=== PATIENT | female | born 1985 | race Caucasian/White ===

== ENCOUNTER 2022-10-19 13:59 | Inpatient (IN) | payer OTHER ==
[~2022-10-19] VITALS: Ht 165.1 cm; Wt 58.1 kg
[2022-10-19 14:58] LABS: BASOPHILS ABSOLUTE AUTO 0.08 K/mm3 (0.00-0.23); BASOPHILS PERCENT AUTO 1 % (0-2); EOSINOPHILS ABSOLUTE AUTO 0.03 K/mm3 (0.00-0.68); EOSINOPHILS PERCENT AUTO 0 % (0-6); Hematocrit 39.1 % (33.0-51.0); Hemoglobin 13.4 g/dL (11.5-16.0); IMMATURE GRAN ABSOLUTE AUTO 0.05 K/mm3 (0.00-0.10); IMMATURE GRAN PERCENT AUTO 1 % (0-1); LYMPHOCYTES ABSOLUTE AUTO 0.34 K/mm3 (0.84-5.20); LYMPHOCYTES PERCENT AUTO 5 % (21-46); MONOCYTES ABSOLUTE AUTO 0.73 K/mm3 (0.16-1.47); MONOCYTES PERCENT AUTO 10 % (4-13); Mean Corpuscular HGB 34.1 pg (26.0-34.0); Mean Corpuscular HGB Conc 34.3 g/dL (31.5-36.5); Mean Corpuscular Volume 100 fL (80-100); Mean Platelet Volume 10.3 fL (9.1-12.4); NEUTROPHILS ABSOLUTE AUTO 6.05 K/mm3 (1.96-9.15); NEUTROPHILS PERCENT AUTO 83 % (41-73); Platelet Count 135 K/mm3 (150-400); RDW Coefficient Variation 13.3 % (11.7-14.2); RDW Standard Deviation 49.1 fL (35.1-46.3); Red Blood Cell Count 3.93 M/mm3 (3.80-5.20); White Blood Cell Count 7.28 K/mm3 (4.00-11.30)
[2022-10-19 15:23] LABS: Albumin, Blood 4.4 g/dL (3.4-5.0); Bilirubin, Total 1.4 mg/dL (0.1-1.0); Bun/Creatinine Ratio 18.1 (12.0-20.0); Creatinine, Blood 0.66 mg/dL (0.40-1.00); Globulin, Blood 4.6 g/dL (2.2-4.0); Potassium, Blood 3.3 mmol/L (3.5-5.5)
[2022-10-19 17:19] LABS: Source, Urine Clean Catch
[2022-10-19 17:59] LABS: Appearance, Urine Hazy (Clear); Blood, Urine 5+ (Neg); Color, Urine Amber (P-Yellow); Glucose Qualitative, Urine Neg (Neg); Ketones, Urine 3+ (Neg); Leukocyte Esterase, Urine 1+ (Neg); Nitrite, Urine Neg (Neg); Protein, Urine 3+ (Neg); Urobilinogen, Urine 2+ (Normal)
[2022-10-19 18:26] LABS: Bilirubin, Urine 1+ (Neg)
[2022-10-19 18:27] LABS: Bacteria Mod /hpf; Calcium Oxalate Crystals Many /hpf; Mucus Light (0-Heavy); Red Blood Cells, Urine 0-2 /hpf (0-2); Squamous Epithelial Cells Mod /hpf (Few)
[2022-10-19 21:44] VITALS: BP 132/104
[2022-10-20 05:09] VITALS: BP 119/83
[2022-10-20 05:35] LABS: BASOPHILS ABSOLUTE AUTO 0.08 K/mm3 (0.00-0.23); BASOPHILS PERCENT AUTO 2 % (0-2); EOSINOPHILS ABSOLUTE AUTO 0.13 K/mm3 (0.00-0.68); EOSINOPHILS PERCENT AUTO 3 % (0-6); Hematocrit 37.3 % (33.0-51.0); Hemoglobin 12.6 g/dL (11.5-16.0); IMMATURE GRAN ABSOLUTE AUTO 0.03 K/mm3 (0.00-0.10); IMMATURE GRAN PERCENT AUTO 1 % (0-1); LYMPHOCYTES ABSOLUTE AUTO 0.72 K/mm3 (0.84-5.20); LYMPHOCYTES PERCENT AUTO 14 % (21-46); MONOCYTES ABSOLUTE AUTO 0.65 K/mm3 (0.16-1.47); MONOCYTES PERCENT AUTO 13 % (4-13); Mean Corpuscular HGB Conc 33.8 g/dL (31.5-36.5); Mean Corpuscular Volume 101 fL (80-100); Mean Platelet Volume 10.4 fL (9.1-12.4); NEUTROPHILS PERCENT AUTO 68 % (41-73); Platelet Count 120 K/mm3 (150-400); RDW Coefficient Variation 13.2 % (11.7-14.2); RDW Standard Deviation 49.5 fL (35.1-46.3); Red Blood Cell Count 3.71 M/mm3 (3.80-5.20); White Blood Cell Count 5.01 K/mm3 (4.00-11.30)
[2022-10-20 06:08] LABS: Albumin, Blood 3.6 g/dL (3.4-5.0); Albumin/Globulin Ratio 0.9 (0.8-1.8); Bilirubin, Total 1.3 mg/dL (0.1-1.0); Bun/Creatinine Ratio 16.3 (12.0-20.0); Calcium, Blood 9.2 mg/dL (8.5-10.1); Creatinine, Blood 0.68 mg/dL (0.40-1.00); Globulin, Blood 3.9 g/dL (2.2-4.0); Magnesium, Blood 1.9 mg/dL (1.6-2.4); Total Protein, Blood 7.5 g/dL (6.4-8.2)
--- NOTE | 2022-10-20 06:37 | NUR ---
SHIFT SUMMARY CIWAS BETWEEN 4-17 THIS SHIFT, MEDICATED APPROPRIATELY. NO OTHER EVENTS, SIGNIFICANT OTHER AT BEDSIDE WHOLE SHIFT. NO SEIZURE ACTIVITY OBSERVED OR REPORT. Q1H FIRE SAFETY CHECKS PERFORMED
[2022-10-20 07:47] VITALS: BP 106/79
--- NOTE | 2022-10-20 13:01 | NUR ---
RECEIVED CALL FROM DIRECTOR DIGITAL MARKETING THAT PT'S HR HAD INCREASED FROM THE 80/90's TO THE LOW HUNDREDS, THEN GRADUALLY UP TO 130/140's. PT STATED THAT SHE HAS BEEN UP IN THE ROOM WITH HER SO CLEANING AND TIDYING UP. SHE DENIED ANY CHEST PAIN, STATED THAT SHE DOES HAVE MILD SOB, BUT DENIES DIZZINESS/LIGHTHEADEDNESS. DISCUSSED HEART RATE AND REQUESTED PT RETURN TO BED TO SEE IF HER HEART RATE IMPROVED. PHYSICIAN PRACTICE MARKET MANAGER REPORTS HEART RATE IN THE 80's.
[2022-10-20 15:53] VITALS: BP 109/84
--- NOTE | 2022-10-20 19:46 | NUR ---
SHIFT SUMMARY: SHAWNA IS A&O X4. VSS, NO ACUTE EVENTS THIS SHIFT. SHE REPORTED GOOD CONTROL OF HER WITHDRAWL SYMPTOMS WITH 50 MG OF LIBRIUM. SHE IS TOLERATING PO INTAKE WELL, IV TO R AC PATENT, IS INDEPENDENT IN THE ROOM, AND IS PLEASANT AND COOPERATIVE. SHE IS LYING IN BED WITH THE CALL LIGHT IN REACH, PARTNER AT BEDSIDE. REPORT WAS GIVEN TO AUTOMOTIVE PRODUCT ENGINEER RN.
[2022-10-20 20:01] VITALS: BP 104/83
[2022-10-21 05:12] VITALS: BP 114/79
[2022-10-21 05:39] LABS: BASOPHILS PERCENT AUTO 2 % (0-2); EOSINOPHILS ABSOLUTE AUTO 0.15 K/mm3 (0.00-0.68); EOSINOPHILS PERCENT AUTO 3 % (0-6); Hematocrit 36.7 % (33.0-51.0); Hemoglobin 12.2 g/dL (11.5-16.0); IMMATURE GRAN ABSOLUTE AUTO 0.03 K/mm3 (0.00-0.10); IMMATURE GRAN PERCENT AUTO 1 % (0-1); LYMPHOCYTES ABSOLUTE AUTO 0.74 K/mm3 (0.84-5.20); LYMPHOCYTES PERCENT AUTO 16 % (21-46); MONOCYTES ABSOLUTE AUTO 0.58 K/mm3 (0.16-1.47); MONOCYTES PERCENT AUTO 12 % (4-13); Mean Corpuscular HGB 33.8 pg (26.0-34.0); Mean Corpuscular HGB Conc 33.2 g/dL (31.5-36.5); Mean Corpuscular Volume 102 fL (80-100); Mean Platelet Volume 10.4 fL (9.1-12.4); NEUTROPHILS ABSOLUTE AUTO 3.13 K/mm3 (1.96-9.15); NEUTROPHILS PERCENT AUTO 66 % (41-73); Platelet Count 126 K/mm3 (150-400); RDW Coefficient Variation 13.1 % (11.7-14.2); RDW Standard Deviation 49.1 fL (35.1-46.3); Red Blood Cell Count 3.61 M/mm3 (3.80-5.20); White Blood Cell Count 4.73 K/mm3 (4.00-11.30)
[2022-10-21 06:22] LABS: Albumin, Blood 3.4 g/dL (3.4-5.0); Albumin/Globulin Ratio 0.8 (0.8-1.8); Bilirubin, Total 1.1 mg/dL (0.1-1.0); Bun/Creatinine Ratio 13.7 (12.0-20.0); Creatinine, Blood 0.66 mg/dL (0.40-1.00); Potassium, Blood 3.8 mmol/L (3.5-5.5); Total Protein, Blood 7.4 g/dL (6.4-8.2)
--- NOTE | 2022-10-21 06:44 | NUR ---
SHIFT SUMMARY CIWAS RANGING FROM 3-12 THIS SHIFT, PT MEDICATED APPROPRIATELY. LAST CIWAS AN 8, PT REQUESTED TO ONLY HAVE THE LIBRIUM AT THIS TIME, GAVE ONLY LIBRIUM PER HER REQUEST. NO OTHER EVENTS OVERNIGHT. Q1H SAFETY CHECKS PERFORMED
[2022-10-21 08:09] VITALS: BP 102/79
[2022-10-21] MEDS ORDERED: ATIVAN0.5 MG PO (14:32)
[2022-10-21] MEDS ORDERED: CHLO25 PO (14:34)
[2022-10-21] MEDS ORDERED: FOLI1 PO (14:35)
[2022-10-21] MEDS ORDERED: B-1100 MG PO (14:35)
--- NOTE | 2022-10-21 15:50 | NUR ---
DISCHARGE INSTRUCTIONS DISCUSSED WITH PT AND SIGNIFICANT OTHER, WRITTEN COPY PROVIDED WELL HARD PRESCRIPTION FOR [facility]IV[facility]. PT VERBALIZED UNDERSTANDING. IV REMOVED BY SUPERVISOR INSPECTING. PERSONAL BELONGINGS SENT WITH PT. SIGNIFICANT OTHER PROVIDING TRANSPORTATION HOME VIA PERSONAL VEHICLE.
== END 2022-10-21 16:00 | disposition home or self-care (01) | DRG 897 ==
LOC: ER 13:59 → MEDS 14:00
PROVIDERS: Student in an Organized Health Care Education/Training Program; ADMIT Student in an Organized Health Care Education/Training Program
PROC: HZ2ZZZZ Detoxification Services for Substance Abuse Treatment (ICD-10-PCS; principal; 2022-10-19)
DX: F10.239 Alcohol dependence with withdrawal, unspecified (principal); K70.9 Alcoholic liver disease, unspecified; F41.9 Anxiety disorder, unspecified; R56.9 Unspecified convulsions; R79.89 Other specified abnormal findings of blood chemistry; Y90.0 Blood alcohol level of less than 20 mg/100 ml; Z98.818 Other dental procedure status
CPT/HCPCS: 36415; 71045; 76705; 80053; 81001; 81025; 83690; 83735; 85025; 87086; 93005; 93010; 96365; 96368; 96374; 96375; 96376; 99285-25; A9270; G0378; G0480; J2060; J3411; J7050